=== PATIENT | male | born 1995 | race Caucasian/White ===

== ENCOUNTER 2018-10-12 23:20 | Emergency (ER) | payer MEDICAID, OTHER ==
[~2018-10-12] VITALS: Ht 180.3 cm; Wt 95.0 kg
[~2018-10-12 23:20] MED LIST: NO HOME MEDS
[2018-10-13 00:43] VITALS: BP 137/74
== END 2018-10-13 00:59 | disposition home or self-care (01) ==
LOC: ER 23:21
DX: S60.512A Abrasion of left hand, initial encounter (principal); F12.90 Cannabis use, unspecified, uncomplicated; W22.01XA Walked into wall, initial encounter; Y93.89 Activity, other specified; Y92.89 Other specified places as the place of occurrence of the external cause; Y99.8 Other external cause status
CPT/HCPCS: 73130; 99283